=== PATIENT | female | born 1970 | race African-American/Black ===

== ENCOUNTER 2019-04-02 13:24 | Emergency (ER) | payer OTHER ==
[~2019-04-02] VITALS: Ht 167.6 cm; Wt 88.9 kg
[~2019-04-02 13:24] MED LIST: FLEXERIL PO; IBUPROFEN 800800 MG PO; NOHOMEMEDICATIONS; NORCO 5-325 TA1 EACH PO; ZOFRAN4 MG PO
[2019-04-02 13:58] LABS: URINE BILIRUBIN NEGATIVE (Negative); URINE BLOOD NEGATIVE (Negative); URINE CLARITY SL CLOUDY; URINE COLOR YELLOW; URINE GLUCOSE-RANDOM* NEGATIVE (Negative); URINE KETONES NEGATIVE (Negative); URINE LEUKOCYTES-REFLEX NEGATIVE (Negative); URINE NITRITE-REFLEX NEGATIVE (Negative); URINE PROTEIN (DIPSTICK) NEGATIVE (Negative); URINE SPECIFIC GRAVITY 1.015 (1.005-1.035); URINE UROBILINOGEN 0.2 E.U./dl (0.2-1.0)
[2019-04-02 14:25] LABS: ABSOLUTE NEUTROPHILS 2.2 thou/uL (1.4-8.2); EOSINOPHILS 1.7 % (0.0-3.0); HEMATOCRIT 36.9 % (37.0-47.0); HEMOGLOBIN 11.9 gm/dL (12.0-15.0); MCH 26.4 pg (26.0-34.0); MCHC 32.2 g/dL (28.0-37.0); MONOCYTES 9.7 % (1.0-8.0); PLATELET COUNT 273 thou/uL (150-400); POLYS 60.6 % (36.0-66.0); RDW 15.5 % (10.5-14.5); WBC 3.6 thou/uL (4.0-11.0)
[2019-04-02 14:33] LABS: ANION GAP 7 mmol/L (7-16); BUN 11 mg/dL (7-18); CALCIUM 9.2 mg/dL (8.5-10.1); CHLORIDE 102 mmol/L (98-107); CO2 29 mmol/L (21-32); CREATININE 0.9 mg/dL (0.6-1.0); GLUCOSE 100 mg/dL (74-106); POTASSIUM 3.5 mmol/L (3.5-5.1); SODIUM 138 mmol/L (136-145)
[2019-04-02 14:43] LABS: ALBUMIN 3.9 g/dL (3.4-5.0); MAGNESIUM 1.8 mg/dL (1.8-2.4); SGOT 19 U/L (15-37); SGPT 19 U/L (30-65); TOTAL BILIRUBIN 0.5 mg/dL (<0.1-1.0); TOTAL PROTEIN 7.9 g/dL (6.4-8.2); TROPONIN-I <0.06 ng/mL (<0.06)
[2019-04-02] MEDS ORDERED: MECLIZINE HCL25 MG PO (15:35)
[2019-04-02 16:20] VITALS: BP 155/80
--- NOTE | 2019-04-02 16:53 | EKG ---
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
--- NOTE | 2019-04-02 16:56 | EKG ---
[address] [address] [facility] [employer] [address] ELECTROCARDIOGRAM REPORT Name: CLAYTONYUDIJimmy HERNANDEZ Room #: REG [facility]#: [id number] Admission: 04/02/19 Attend Phys: Discharge: Date of : 68 Report #: [id number] THIS REPORT FOR: //name// [facility] ED Test Date: 2019-04-02 Test Time: 14:17:25 Pat Name: YUDI ARNOLD Department: Room: Gender: F [employer]: PORSCHE : 1970 Requested By: Justin Bennett Order Number: [id number] MD: Silas Dickens Measurements Intervals [place] Rate: 75 P: 16 MA: 145 QRS: 21 QRSD: 90 T: 8 QT: 399 QTc: 446 Interpretive Statements Sinus rhythm Poor R-wave progression Baseline wander in lead(s) V3,V4,V5 Compared to ECG 08/15/2016 13:18:07 No significant changes Electronically Signed On 04-02-2019 16:56:01 CDT by Silas Dickens [email or web address] <ELECTRONICALLY SIGNED> By: Silas Dickens MD 04/02/19 1656 141 141 Silas Dickens MD /OLIMPIA
== END 2019-04-02 18:00 | disposition home or self-care (01) ==
LOC: ER 13:24
PROVIDERS: Emergency Medicine
DX: H81.10 Benign paroxysmal vertigo, unspecified ear (principal)

== ENCOUNTER 2019-09-08 21:25 | Emergency (ER) | payer BC, OTHER ==
[~2019-09-08] VITALS: Ht 167.6 cm; Wt 95.3 kg
[~2019-09-08 21:25] MED LIST changes: +MECLIZINE HCL25 MG PO
[2019-09-08 22:16] LABS: HEMATOCRIT 37.2 % (37.0-47.0); HEMOGLOBIN 11.9 gm/dL (12.0-15.0); MCH 26.3 pg (26.0-34.0); MCHC 32.1 g/dL (28.0-37.0); MCV 81.9 fL (80.0-100.0); PLATELET COUNT 217 thou/uL (150-400); RBC 4.54 mil/uL (4.20-5.00); RDW 15.3 % (10.5-14.5); WBC 2.2 thou/uL (4.0-11.0)
[2019-09-08 22:17] LABS: URINE BILIRUBIN NEGATIVE (Negative); URINE BLOOD 3+ (Negative); URINE CLARITY SL CLOUDY; URINE COLOR YELLOW; URINE GLUCOSE-RANDOM* NEGATIVE (Negative); URINE KETONES NEGATIVE (Negative); URINE LEUKOCYTES-REFLEX NEGATIVE (Negative); URINE NITRITE-REFLEX NEGATIVE (Negative); URINE PROTEIN (DIPSTICK) 1+ (Negative)
[2019-09-08 22:18] LABS: ANION GAP 9 mmol/L (7-16); BUN 7 mg/dL (7-18); CALCIUM 8.7 mg/dL (8.5-10.1); CHLORIDE 102 mmol/L (98-107); CO2 27 mmol/L (21-32); CREATININE 0.9 mg/dL (0.6-1.0); GLUCOSE 121 mg/dL (74-106); POTASSIUM 3.5 mmol/L (3.5-5.1); SODIUM 138 mmol/L (136-145)
[2019-09-08 22:27] LABS: TROPONIN-I <0.06 ng/mL (<0.06)
[2019-09-08 22:33] LABS: URINE RBC >20 Many /HPF (0-2)
[2019-09-08 22:34] LABS: BACTERIA-REFLEX 1-9 Few /HPF (None Seen); CASTS None Seen /LPF (None Seen); CRYSTALS None Seen /LPF (None Seen); SQUAMOUS 0-3 Few /LPF (0-3); URINE WBC-REFLEX None Seen /HPF (0-5)
[2019-09-08 22:48] LABS: ABSOLUTE NEUTROPHILS 0.9 thou/uL (1.4-8.2); ANISOCYTOSIS 1+
[2019-09-09] MEDS ORDERED: MECLIZINE HCL25 M1 PO (01:05)
[2019-09-09] MEDS ORDERED: ZOFRAN ODT4 MG PO (01:05)
[2019-09-09] MEDS ORDERED: IBUPROFEN 600600 M1 PO (01:05)
[2019-09-09] MEDS ORDERED: PROMETH-CODEIN 65 ML PO (01:05)
[2019-09-09 01:37] VITALS: BP 157/78
--- NOTE | 2019-09-09 08:54 | EKG ---
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1970 Requested By: Humphrey Raymundo Order Number: [id number] MD: Bill Benedict Measurements Intervals [place] Rate: 68 P: 15 CO: 146 QRS: 25 QRSD: 90 T: 16 QT: 398 QTc: 427 Interpretive Statements Sinus rhythm No significant abnormality Compared to ECG 04/02/2019 14:17:25 No significant change was found Electronically Signed On 09-09-2019 8:53:26 CDT by Bill Benedict [email or web address] <ELECTRONICALLY SIGNED> By: Bill Benedict MD, [facility] 09/09/19 0853 29 29 Bill Benedict MD, [facility] /EPI
== END 2019-09-09 01:39 | disposition home or self-care (01) ==
LOC: ER 21:25
PROVIDERS: Emergency Medicine
DX: J06.9 Acute upper respiratory infection, unspecified (principal); R42 Dizziness and giddiness